=== PATIENT | female | born 1995 | race Caucasian/White ===

== ENCOUNTER 2023-08-24 14:52 | Outpatient (REF) | payer BC, SELFPAY ==
[2023-08-28 12:58] LABS: Helicobacter pylori Ag, Feces Negative (Negative)
== END 2023-08-24 14:53 | disposition home or self-care (01) ==
LOC: NCHCN 14:52
PROVIDERS: Visit Provider Family Medicine
DX: K21.9 Gastro-esophageal reflux disease without esophagitis (principal)
CPT/HCPCS: 87338

== ENCOUNTER 2024-05-03 14:43 | Outpatient (REF) | payer OTHER, SELFPAY ==
[2024-05-03 15:03] LABS: Abs Immature Grans 0.02 10^3/uL (0.0-0.06); Absolute Basophil Count 0.03 10^3/uL (0.0-0.2); Absolute Lymphocyte Count 1.53 10^3/uL (1.2-3.4); Absolute Monocyte Count 0.47 10^3/uL (0.1-0.8); Absolute Neutrophil Count 4.49 10^3/uL (1.2-6.7); Basophils % 0.4 %; HCT 44.6 % (36.0-46.0); HGB 15.1 g/dL (11.2-15.7); Immature Grans % 0.3 %; Lymphocytes % 22.7 %; MCH 28.4 pg (27.0-33.0); MCHC 33.9 % (32.0-36.0); MCV 84 fL (80-95); MPV 9.4 fL (8.0-11.0); Neutrophils % 66.6 %; Platelet Count 313 10^3/uL (130-400); RBC 5.32 10^6/uL (3.93-5.22); RDW 12.7 % (11.7-14.6); RDW-SD 38.4 fL; WBC 6.74 10^3/uL (4.4-10.8)
[2024-05-03 15:24] LABS: Calculated LDL 125 mg/dL (<100); Cholesterol 197 mg/dL (<200); Ferritin 124 ng/mL (8-252); HDL Cholesterol 54 mg/dL (40-60); TSH (W/Ref FT4) 1.51 uIU/mL (0.36-3.74); Triglyceride 92 mg/dL (<150)
== END 2024-05-03 14:44 | disposition home or self-care (01) ==
LOC: NCHCN 14:43
PROVIDERS: Visit Provider Family Medicine
DX: Z00.00 Encounter for general adult medical examination without abnormal findings (principal); E04.9 Nontoxic goiter, unspecified; N92.0 Excessive and frequent menstruation with regular cycle; Z13.220 Encounter for screening for lipoid disorders
CPT/HCPCS: 80061; 82728; 84443; 85025

== ENCOUNTER 2024-10-25 13:32 | Outpatient (REF) | payer OTHER, SELFPAY ==
[2024-10-31 03:09] LABS: Methylphenidate 875 ng/mL (Cutoff: 10); Ritalinic Acid 33386 ng/mL (Cutoff: 50)
== END 2024-10-25 13:33 | disposition home or self-care (01) ==
LOC: NCHCN 13:32
PROVIDERS: PCP Family Medicine; Visit Provider Family Medicine
DX: Z79.899 Other long term (current) drug therapy
CPT/HCPCS: 80360